=== PATIENT | female | born 1965 | race Caucasian/White ===

== ENCOUNTER → 2019-04-28 | Outpatient (CLI) | payer BC ==
[2019-04-28 13:25] LABS: HEMATOCRIT 39.3 % (36.0-47.0); HEMOGLOBIN 13.6 g/dL (12.0-15.5); MEAN CORPUSCULAR HEMOGLOBIN 33.2 pg (27.0-33.4); MEAN CORPUSCULAR HGB CONC 34.7 g/dL (32.0-36.0); MEAN CORPUSCULAR VOLUME 96 fl (80-97); PLATELET COUNT 260 10^3/uL (150-450); RED CELL DISTRIBUTION WIDTH 13.7 % (11.5-14.0); WHITE BLOOD COUNT 9.4 10^3/uL (4.0-10.5)
[2019-04-28 13:45] LABS: ALBUMIN 4.9 g/dL (3.5-5.0); ALKALINE PHOSPHATASE 86 U/L (38-126); ANION GAP 11 (5-19); ASPARTATE AMINO TRANSFERASE 29 U/L (14-36); BILIRUBIN,DIRECT 0.4 mg/dL (0.0-0.4); BILIRUBIN,TOTAL 0.9 mg/dL (0.2-1.3); BLOOD UREA NITROGEN 25 mg/dL (7-20); CALCIUM 10.5 mg/dL (8.4-10.2); CARBON DIOXIDE 24 mmol/L (22-30); CHLORIDE 105 mmol/L (98-107); CHOLESTEROL 270.84 mg/dL (0-200); GLUCOSE 106 mg/dL (75-110); POTASSIUM 4.3 mmol/L (3.6-5.0); TOTAL PROTEIN 8.1 g/dL (6.3-8.2); TRIGLYCERIDES 202 mg/dL (<150)
[2019-04-28 13:57] LABS: DIRECT LDL 146 mg/dL (<100)
[2019-04-28 13:58] LABS: VLDL CHOLESTEROL 40.4 mg/dL (10-31)
== END ==
LOC: LAB 13:06
PROVIDERS: ATTEND Physician Assistant
DX: Z00.00 Encounter for general adult medical examination without abnormal findings (principal); I10 Essential (primary) hypertension; Z13.1 Encounter for screening for diabetes mellitus; Z13.29 Encounter for screening for other suspected endocrine disorder; F17.200 Nicotine dependence, unspecified, uncomplicated
CPT/HCPCS: 36415; 80053; 80061; 83036; 84436; 84443; 85027

== ENCOUNTER 2019-11-13 07:02 | Emergency (ER) | payer BC ==
[2019-11-13] MEDS ORDERED: ASPIRIN 81 MG TABLET, CHEWABLE PO ONE (07:33)
[2019-11-13 08:07] LABS: ABSOLUTE EOSINOPHILS # (AUTO) 0.2 10^3/uL (0.0-0.6); ABSOLUTE LYMPHOCYTES (AUTO) 2.2 10^3/uL (0.5-4.7); BASOPHILS % (AUTO) 0.6 % (0-2); EOSINOPHILS % (AUTO) 2.5 % (0-6); TOTAL CELLS COUNTED % (AUTO) 100 %
[2019-11-13 08:12] LABS: ABSOLUTE BASOPHILS # (AUTO) 0.1 10^3/uL (0.0-0.2); ABSOLUTE MONOCYTES (AUTO) 0.8 10^3/uL (0.1-1.4); ABSOLUTE NEUT (AUTO) 5.5 10^3/uL (1.7-8.2); HEMATOCRIT 39.4 % (36.0-47.0); HEMOGLOBIN 14.1 g/dL (12.0-15.5); LYMPHOCYTES % (AUTO) 25.2 % (13-45); MEAN CORPUSCULAR HEMOGLOBIN 34.1 pg (27.0-33.4); MEAN CORPUSCULAR HGB CONC 35.8 g/dL (32.0-36.0); MEAN CORPUSCULAR VOLUME 95 fl (80-97); PLATELET COUNT 240 10^3/uL (150-450); RED BLOOD COUNT 4.13 10^6/uL (3.72-5.28); RED CELL DISTRIBUTION WIDTH 13.4 % (11.5-14.0); SEGMENTED NEUTROPHILS % (AUTO) 62.7 % (42-78); WHITE BLOOD COUNT 8.8 10^3/uL (4.0-10.5)
[2019-11-13 08:25] LABS: ALBUMIN 4.7 g/dL (3.5-5.0); ALKALINE PHOSPHATASE 90 U/L (38-126); ANION GAP 10 (5-19); ASPARTATE AMINO TRANSFERASE 28 U/L (14-36); BILIRUBIN,DIRECT 0.2 mg/dL (0.0-0.4); BILIRUBIN,TOTAL 0.9 mg/dL (0.2-1.3); BLOOD UREA NITROGEN 19 mg/dL (7-20); CALCIUM 9.7 mg/dL (8.4-10.2); CARBON DIOXIDE 27 mmol/L (22-30); CHLORIDE 102 mmol/L (98-107); CREATINE KINASE 71 U/L (30-135); GLUCOSE 110 mg/dL (75-110); POTASSIUM 3.8 mmol/L (3.6-5.0)
[2019-11-13 08:37] LABS: CREATINE KINASE MB 1.02 ng/mL (<4.55); TROPONIN I < 0.012 ng/mL
--- NOTE | 2019-11-13 08:46 | ER Document Report ---
ED Cardiac - General Chief Complaint: Chest Pain Stated Complaint: CHEST PAIN Time Seen by Provider: 11/13/19 08:24 Primary Care Provider: FRANKIE JUNIOR PA-C [Primary Care Provider] - Follow up as needed Notes: CHIEF COMPLAINT: Chest pain HPI: 53-year-old female who is reasonably healthy presenting for evaluation of sharp left chest pain that began last night has been constant since onset. Patient states pain seems to radiate into the left shoulder and down the left arm to the level of the elbow. Reports mild shortness of breath with this denies nausea vomiting. No history of similar discomfort. Patient states that she does have a hypertension history but does not take medication currently. Patient states that she normally does walk 6 to 8 miles daily on the weekends and does not have any exertional dyspnea or chest discomfort when she is doing that. Patient denies thyroid issues, states that she felt like her heartbeat was "quick" last night at onset of her symptoms. Patient states currently she feels better than previous. Denies abdominal pain. Denies prior cardiac work- up positive ROS: See HPI - all other systems were reviewed and are otherwise negative Constitutional: no fever Eyes: no drainage, no blurred vision ENT: no runny nose, no sore throat Cardiovascular: Positive chest pain Resp: Positive SOB, no cough GI: no vomiting, no diarrhea, no abdominal pain : no dysuria Integumentary: no rash Allergy: no hives Musculoskeletal: no extremity pain or swelling Neurological: no numbness/tingling, no weakness MEDICATIONS: I agree with the patient medications as charted by the RN. ALLERGIES: I agree with the allergies as charted by the RN. PAST MEDICAL HISTORY/PAST SURGICAL HISTORY: Reviewed and agree as charted by RN. SOCIAL HISTORY: Reviewed and agree as charted by RN. FAMILY HISTORY: No significant familial comorbid conditions directly related to patient complaint EXAM: Reviewed vital signs as charted by RN. CONSTITUTIONAL: Alert and oriented and responds appropriately to questions. Well-appearing; well-nourished HEAD: Normocephalic; atraumatic EYES: PERRL; Conjunctivae clear, sclerae non-icteric ENT: normal nose; no rhinorrhea; moist mucous membranes; pharynx without lesions noted, no uvula edema or deviation, no tonsillar hypertrophy, phonation normal NECK: Supple without meningismus; non-tender; no cervical lymphadenopathy, no masses CARD: RRR; no murmurs, no clicks, no rubs, no gallops; symmetric distal pulses RESP: Normal chest excursion without splinting or tachypnea; breath sounds clear and equal bilaterally; no wheezes, no rhonchi, no rales, pulse oximetry 97% on room air not hypoxic ABD/GI: Normal bowel sounds; non-distended; soft, non-tender, no rebound, no guarding; no palpable organomegaly or masses. BACK: The back appears normal and is non-tender to palpation, there is no CVA tenderness EXT: Normal ROM in all joints; non-tender to palpation; no cyanosis, no effusions, no edema SKIN: Normal color for age and race; warm; dry; good turgor; no acute lesions noted NEURO: Moves all extremities equally; Motor and sensory function intact PSYCH: The patient's mood and manner are appropriate. Grooming and personal hygiene are appropriate. MDM: 53-year-old female presenting with left-sided chest pain that began last night with mild shortness of breath and a sensation of her heart beating quickly. We will add thyroid panel to lab work. Initial screening troponin was negative. Initial EKG sinus tachycardia without other visible ectopy. Patient heart score is 3 for hypertension history, age and EKG. TRAVEL OUTSIDE OF THE [place] IN LAST 30 DAYS: No - Related Data Allergies/Adverse Reactions: Iodinated Contrast Media Allergy (Verified 11/13/19 07:40) Penicillins Allergy (Verified 11/13/19 07:40) Past Medical History - Social History Smoking Status: Unknown if Ever Smoked Family History: Reviewed & Not Pertinent Patient has suicidal ideation: No Patient has homicidal ideation: No Physical Exam - Vital signs Vitals: Resp Pulse Ox 24 H 97 11/13/19 07:19 11/13/19 07:19 Course - Re-evaluation Re-evalutation: 11/13/19 09:57 I left a message through the carton making machine operator for Dr. Renaldo nuñez to discuss outpatient follow-up for the patient. Initial troponin was negative. Patient is feeling better. She is low risk for ACS. Will obtain second troponin. 11/13/19 10:[address] Renaldo nuñez, case was discussed labs reviewed, in agreement for outpatient follow-up patient to call the office 11/13/19 12:23 Second troponin is normal. Patient is pain-free at this time. She is comfortable with the plan for discharge to follow-up outpatient with cardiology - Vital Signs Vital signs: Temp Pulse Resp BP Pulse Ox 98.4 F 16 148/73 H 98 11/13/19 08:11 11/13/19 11:01 11/13/19 11:01 11/13/19 11:01 - Laboratory Result Diagrams: 11/13/19 07:40 11/13/19 07:40 Laboratory results interpreted by me: 11/13/19 07:40 MCH 34.1 H Discharge - Discharge Clinical Impression: Chest pain Qualifiers: Chest pain type: unspecified Qualified Code(s): R07.9 - Chest pain, unspecified Condition: Stable Disposition: HOME, SELF-CARE Additional Instructions: Take a baby aspirin daily. Call the cardiology office today to schedule close follow-up in the office for outpatient stress test. We did speak with card iology about your case today. If you have recurrent or worsening symptoms return for reevaluation Referrals: FRANKIE JUNIOR PA-C [Primary Care Provider] - Follow up as needed ZANE FRANCO MD [ACTIVE STAFF] - Follow up as needed
--- NOTE | 2019-11-13 09:18 | RADIOLOGY REPORT (SQ) ---
EXAM DESCRIPTION: CHEST 2 VIEWS COMPLETED DATE/TIME: 11/13/2019 8:55 am REASON FOR STUDY: chest pain COMPARISON: None. EXAM PARAMETERS: NUMBER OF VIEWS: two views TECHNIQUE: Digital Frontal and Lateral radiographic views of the chest acquired. RADIATION DOSE: NA LIMITATIONS: none FINDINGS: LUNGS AND PLEURA: No opacities, masses or pneumothorax. No pleural effusion. MEDIASTINUM AND HILAR STRUCTURES: No masses or contour abnormalities. HEART AND VASCULAR STRUCTURES: Heart normal size. No evidence for failure. BONES: No acute findings. HARDWARE: None in the chest. Cholecystectomy clips. OTHER: No other significant finding. IMPRESSION: NO ACUTE RADIOGRAPHIC FINDING IN THE CHEST. TECHNICAL DOCUMENTATION: JOB ID: [id number] 2010 [employer]- All Rights Reserved Reading location - IP/workstation name: [email or web address]
[2019-11-13] MEDS ORDERED: HYDROCHLOROTHIAZIDE 25 MG TABLET PO ONE (10:05)
[2019-11-13 12:37] VITALS: BP 154/69
--- NOTE | 2019-11-13 18:15 | EKG REPORT ---
SEVERITY:- ABNORMAL ECG - SINUS TACHYCARDIA RIGHT ATRIAL ABNORMALITY : Confirmed by: Colleen Kenney 13-Nov-2019 18:14:30
== END 2019-11-13 12:35 | disposition home or self-care (01) ==
LOC: ER 07:02
DX: R07.9 Chest pain, unspecified (principal); M25.512 Pain in left shoulder; M79.602 Pain in left arm; M25.522 Pain in left elbow; R06.02 Shortness of breath; R00.0 Tachycardia, unspecified; I10 Essential (primary) hypertension
CPT/HCPCS: 36415; 71046; 80053; 82550; 82553; 84443; 84484; 85025; 93005; 93010; 99285

== ENCOUNTER → 2020-02-26 | Outpatient (CLI) | payer BC | LOC: RDC 14:50 | PROVIDERS: ATTEND Nurse Practitioner Family | DX: Z03.818 Encounter for observation for suspected exposure to other biological agents ruled out (principal) | CPT/HCPCS: 87635; C9803 ==

== ENCOUNTER → 2020-04-22 | Outpatient (CLI) | payer BC ==
[2020-04-22 11:01] LABS: CHOLESTEROL 279.42 mg/dL (0-200); TRIGLYCERIDES 221 mg/dL (<150)
[2020-04-22 11:11] LABS: DIRECT LDL 119 mg/dL (<100); VLDL CHOLESTEROL 44.2 mg/dL (10-31)
== END ==
LOC: OD 09:40
PROVIDERS: ATTEND Physician Assistant
DX: Z13.29 Encounter for screening for other suspected endocrine disorder (principal); E78.5 Hyperlipidemia, unspecified
CPT/HCPCS: 36415; 80061; 84436; 84443

== ENCOUNTER → 2020-04-26 | Outpatient (CLI) | payer BC ==
[2020-04-26 09:32] LABS: ABSOLUTE BASOPHILS # (AUTO) 0.1 10^3/uL (0.0-0.2); ABSOLUTE EOSINOPHILS # (AUTO) 0.3 10^3/uL (0.0-0.6); ABSOLUTE LYMPHOCYTES (AUTO) 2.5 10^3/uL (0.5-4.7); ABSOLUTE MONOCYTES (AUTO) 0.7 10^3/uL (0.1-1.4); EOSINOPHILS % (AUTO) 4.2 % (0-6); HEMATOCRIT 42.5 % (36.0-47.0); HEMOGLOBIN 14.6 g/dL (12.0-15.5); MEAN CORPUSCULAR HEMOGLOBIN 33.7 pg (27.0-33.4); MEAN CORPUSCULAR HGB CONC 34.4 g/dL (32.0-36.0); MEAN CORPUSCULAR VOLUME 98 fl (80-97); MONOCYTES % (AUTO) 10.3 % (3-13); PLATELET COUNT 254 10^3/uL (150-450); RED BLOOD COUNT 4.34 10^6/uL (3.72-5.28); RED CELL DISTRIBUTION WIDTH 13.3 % (11.5-14.0); SEGMENTED NEUTROPHILS % (AUTO) 46.5 % (42-78); TOTAL CELLS COUNTED % (AUTO) 100 %; WHITE BLOOD COUNT 6.5 10^3/uL (4.0-10.5)
[2020-04-26 10:00] LABS: ALBUMIN 5.2 g/dL (3.5-5.0); ALKALINE PHOSPHATASE 85 U/L (38-126); ANION GAP 13 (5-19); ASPARTATE AMINO TRANSFERASE 35 U/L (14-36); BILIRUBIN,DIRECT 0.5 mg/dL (0.0-0.4); BILIRUBIN,TOTAL 0.7 mg/dL (0.2-1.3); BLOOD UREA NITROGEN 17 mg/dL (7-20); CALCIUM 10.1 mg/dL (8.4-10.2); CARBON DIOXIDE 26 mmol/L (22-30); CHLORIDE 105 mmol/L (98-107); GLUCOSE 93 mg/dL (75-110); POTASSIUM 4.4 mmol/L (3.6-5.0); TOTAL PROTEIN 8.4 g/dL (6.3-8.2)
--- NOTE | 2020-04-26 12:17 | RADIOLOGY REPORT (SQ) ---
EXAM DESCRIPTION: U/S THYROID/SFT TISS HD NECK IMAGES COMPLETED DATE/TIME: 04/26/2020 9:44 am REASON FOR STUDY: HX THYROID NODULE/PERSONAL HISTORY OF ENDO, NUTRITIONAL AND METABO (Z86.39) R53.83 OTHER FATIGUE Z86.39 PERSONAL HISTORY OF ENDO, NUTRITIONAL AND METABOLIC D COMPARISON: None. TECHNIQUE: Dynamic and static acevedo-scale images acquired of the thyroid gland. Selected additional c olor/power Doppler images recorded. All images stored to PACS. LIMITATIONS: None. FINDINGS: RIGHT LOBE: Normal size. Homogeneous echotexture. No cystic or solid masses. LEFT LOBE: Normal size. Homogeneous echotexture. Circumscribed nodule measuring 1.6 cm. Predominat key solid slightly hypoechoic echotexture with a few small cystic areas. Oriented wider than tall. ISTHMUS: Normal size. Homogeneous echotexture. No cystic or solid masses. OTHER: No other significant finding. IMPRESSION: 1.6 CM NODULE IN THE LEFT LOBE OF THE THYROID. MODERATELY SUSPICIOUS, TIRADS 4. COMMENT: The [employer] ([employer]) Thyroid Imaging Reporting And Data System (TI-RADS ) is an ultrasound feature based summed scoring system of risk categorization and management recommen dations for thyroid nodules. TI-RADS assessment categories are as follows: 0 - Incomplete exam: Additional imaging or comparison to prior examinations recommended. 1. - Benign: Fine-needle aspiration or follow-up not routinely recommended in the absence of clinical change. 2. - Not suspicious: Fine-needle aspiration or follow-up not routinely recommended in the absence of clinical change. 3. - Mildly suspicious: Fine-needle aspiration recommended if greater than or equal to 2.5 cm in size . Ultrasound follow-up recommended if greater than or equal to 1.5 cm in size. Follow-up at 1, 3, and 5 years. 4. - Moderately suspicious: Fine-needle aspiration recommended if greater than or equal to 1.5 cm in size. Ultrasound follow-up recommended if greater than or equal to 1.0 cm in size. Follow-up at 1, 2, 3, and 5 years. 5. - Highly suspicious: Fine-needle aspiration recommended if greater than or equal to 1.0 cm in size . Ultrasound follow-up recommended if greater than or equal to 0.5 cm in size. Follow-up at 1, 2, 3, and 5 years. TECHNICAL DOCUMENTATION: JOB ID: [id number] 2010 [employer]- All Rights Reserved Reading location - IP/workstation name: [email or web address]
== END ==
LOC: OD 08:47
PROVIDERS: ATTEND Physician Assistant
DX: R53.83 Other fatigue (principal); E04.1 Nontoxic single thyroid nodule; E55.9 Vitamin D deficiency, unspecified; E53.9 Vitamin B deficiency, unspecified; R94.5 Abnormal results of liver function studies; R79.0 Abnormal level of blood mineral; R79.9 Abnormal finding of blood chemistry, unspecified; Z79.84 Long term (current) use of oral hypoglycemic drugs; Z86.39 Personal history of other endocrine, nutritional and metabolic disease
CPT/HCPCS: 36415; 76536; 80053; 82306; 82607; 83735; 85025

== ENCOUNTER → 2020-05-11 | Day surgery (SDC) | payer BC ==
--- NOTE | 2020-05-11 15:01 | RADIOLOGY REPORT (SQ) ---
EXAM DESCRIPTION: U/S BX SOFT TISS NECK THORX IMAGES COMPLETED DATE/TIME: 05/11/2020 1:56 pm REASON FOR STUDY: E04.1 NONTOXIC SINGLE THYROID NODULE COMPARISON: Ultrasound of the thyroid from 04/26/2020. TECHNIQUE: The procedure, risks, benefits, and alternatives were discussed with the patient in the p reprocedural area, and all questions were answered. Informed consent was obtained verbally and in wri ting. The patient was then brought to the procedural suite, positioned supine on a gurney, and a time-out w as performed. Selected grayscale and color Doppler images of the nodule in the left lobe of the thyr oid gland were then obtained ; based review of these images an appropriate percutaneous access site w as selected. The area around the selected access site was subsequently prepped and draped with 2% chl orhexidine utilizing standard sterile technique. Then, after the access site was anesthetized with 1% lidocaine, a 25 gauge needle was advanced into the lesion of interest utilizing sonographic guidance ; after each pass the sample was submitted to cytopathology for review and in total 5 passes were pe rformed. The patient tolerated the procedure well with local anesthesia. At the end of the procedure the patient's condition was unchanged from the preprocedural baseline. Documentation of pawv-eg-ojam time the proceduralist spent monitoring the patient: 25 minutes. LIMITATIONS: None. FINDINGS: Integrated into the Technique. IMPRESSION: Successful ultrasound-guided fine-needle aspiration of the nodule in the left lobe of th e thyroid gland. TECHNICAL DOCUMENTATION: JOB ID: [id number] Reading location - IP/workstation name: [email or web address]
== END ==
LOC: RAD 12:37
PROVIDERS: ATTEND Otolaryngology
DX: E04.1 Nontoxic single thyroid nodule (principal)
CPT/HCPCS: 21550; 88173

== ENCOUNTER → 2020-05-18 | Day surgery (SDC) | payer BC ==
--- NOTE | 2020-05-18 14:15 | RADIOLOGY REPORT (SQ) ---
EXAM DESCRIPTION: U/S BX SOFT TISS NECK THORX IMAGES COMPLETED DATE/TIME: 05/18/2020 2:03 pm REASON FOR STUDY: E04.1 NONTOXIC SINGLE THYROID NODULE E04.1 NONTOXIC SINGLE THYROID NODULE COMPARISON: 05/11/2020 TECHNIQUE: The procedure was discussed with the patient and written informed consent obtained. A ti meout was performed to confirm the procedure and patient's identity. The skin of the neck was preppe d and draped in sterile fashion and 8 mL of 1% lidocaine administered for local anesthesia. Under sonographic guidance, fine needle aspiration biopsy was per formed of the mass in the left lobe of the thyroid. Two separate aspirations were performed. Hemostasis was obtained with direct manual compression. Th ere were no immediate complications. LIMITATIONS: None. FINDINGS: PATHOLOGY: Pending. IMPRESSION: ULTRASOUND-GUIDED BIOPSY PERFORMED OF A MASS IN THE LEFT LOBE OF THE THYROID. PATHOLOGY PENDING AT THE TIME OF DICTATION. COMMENT: Patient medication list reviewed: Yes- Quality ID# [id number]:Eligible professional attests to doc umenting in the medical record they obtained, updated, or reviewed the patient's current medications. TECHNICAL DOCUMENTATION: JOB ID: [id number] 2010 [employer]- All Rights Reserved Reading location - IP/workstation name: [email or web address]
== END ==
LOC: RAD 13:15 → EDSTATUS 13:16
PROVIDERS: ATTEND Otolaryngology
DX: E04.1 Nontoxic single thyroid nodule (principal); I10 Essential (primary) hypertension; Z87.891 Personal history of nicotine dependence; Z88.0 Allergy status to penicillin; R68.89 Other general symptoms and signs
CPT/HCPCS: 21550; 88173

== ENCOUNTER 2020-06-08 05:33 | Day surgery (SDC) | payer BC ==
--- NOTE | 2020-06-03 12:55 | EKG REPORT ---
SEVERITY:- NORMAL ECG - SINUS RHYTHM : Confirmed by: Esau Neumann MD 03-Jun-2020 12:54:05
[~2020-06-08 05:33] MED LIST: CLINDAMYCIN 900 MG/D5W RTU 900 MG/50 ML RTUPB IV ONE; CLINDAMYCIN 900 MG/D5W RTU 900 MG/50 ML RTUPB IV PRN; LACTATED RINGERS 1000 ML IV PRN; LIDOCAINE 0.5% INJ-PF (5 MG/ML) 50 ML SDV SUBCUT PRN
[2020-06-08] MEDS ORDERED: FENTANYL CITRATE INJ/PF 250 MCG/5 ML AMPULE ONE (06:31)
[2020-06-08] MEDS ORDERED: EPHEDRINE SULFATE INJ 50 MG/1 ML AMPULE ONE (06:31)
[2020-06-08] MEDS ORDERED: ONDANSETRON HCL INJ/PF 4 MG/2 ML SDV ONE ×2 (06:31→10:02)
[2020-06-08] MEDS ORDERED: KETAMINE HCL INJ 500 MG/10 ML VIAL ONE (06:31)
[2020-06-08] MEDS ORDERED: DEXAMETHASONE SOD PHOSPHATE INJ 4 MG/1 ML VIAL ONE (06:31)
[2020-06-08] MEDS ORDERED: MIDAZOLAM 2 MG/2 ML INJ ONE (06:31)
[2020-06-08] MEDS ORDERED: PROPOFOL INJ 200 MG/20 ML VIAL IV ONE (06:32)
[2020-06-08] MEDS ORDERED: BUPIVACAINE HCL 0.5%/EPI 1:200000 INJ 1.8 ML CARTRIDGE ONE (07:22)
[2020-06-08] MEDS ORDERED: OXYMETAZOLINE HCL 0.05% NASAL SPRAY 15 ML BOTTLE ONE (07:22)
[2020-06-08] MEDS ORDERED: MEPERIDINE HCL/PF INJ 25 MG/1 ML DISP.SYRIN IV PRN (08:13)
[2020-06-08] MEDS ORDERED: FENTANYL CITRATE INJ/PF 100 MCG/2 ML AMPUL IV PRN ×3 (08:13)
[2020-06-08] MEDS ORDERED: DIPHENHYDRAMINE HCL 50 MG/ML VIAL IV PRN (08:13)
[2020-06-08] MEDS ORDERED: PROMETHAZINE HCL INJ 25 MG/1 ML VIAL IV PRN ×2 (08:13)
[2020-06-08] MEDS ORDERED: ONDANSETRON HCL INJ/PF 4 MG/2 ML SDV IV PRN ×2 (08:13→09:49)
[2020-06-08] MEDS: FENTANYL CITRATE INJ/PF 100 MCG/2 ML AMPUL ONE ×2 (09:40→09:50)
[2020-06-08] MEDS ORDERED: HYDROCODONE/ACETAMINOPHEN 5-325 MG TABLET PO PRN (09:49)
[2020-06-08] MEDS ORDERED: HYDROCODONE/ACETAMINOPHEN 5-325 MG TABLET ONE (10:33)
[2020-06-08] MEDS ORDERED: METOCLOPRAMIDE HCL INJ/PF 10 MG/2 ML SDV ONE (10:36)
[2020-06-08] MEDS ORDERED: METOCLOPRAMIDE HCL INJ/PF 10 MG/2 ML SDV IV ONE (10:45)
[2020-06-08 11:51] VITALS: BP 141/79
[2020-06-08] MEDS ORDERED: SUCCINYLCHOLINE CHLORIDE INJ 200 MG/10 ML VIAL ONE (14:12)
--- NOTE | 2020-06-12 07:43 | Operative Report ---
Operative Report-[facility] Operative Report: Date of procedure: June 08, 2020 Preoperative diagnoses: 1. Left thyroid lobe dominant nodule 2. Chronic cough 3. Chronic neck compressive symptoms Postoperative diagnoses: 1. Left thyroid lobe dominant nodule 2. Chronic cough 3. Chronic neck compressive symptoms Operation performed: 1. Left thyroid lobectomy with partial isthmectomy (CPT CODE 93273) 2. Intraoperative nerve monitoring (NIM) Primary Surgeon of Record: Dr. Chaka Carnes Assisting surgeon: Dr. Chester Cavazos Anesthetic: General endotracheal tube anesthesia Anesthesia provider: VALARIE Gardner Estimated blood loss: 10 mL Fluids: 1000 mL Complications: None Drains: None Sponge Count: Verified Needle Count: Verified Materials forwarded as specimen: 1. Left thyroid lobe with partial isthmus Findings: 1. Left thyroid lobe with dominant nodule and no other surrounding concerning lymphadenopathy. 2. Left recurrent laryngeal nerve was identified and preserved and was with adequate stimulation at 1 mA during and at the end of the case. 3. Left parathyroid gland prospects were identified and preserved. Indications: This is a 54-year-old white female patient who has been seen and evaluated [facility]. She had been referred to ENT for a left thyroid lobe nodule and chronic cough which has progressively gotten worse over the months. The patient underwent thyroid ultrasound with ultrasound-guided FNAB with a benign left thyroid nodule noted in the setting of chronic compressive symptoms with chronic cough. There was an extensive discussion held with the patient with plan made to proceed with thyroid surgery. The patient voiced an understanding of her medical findings to include relating to her thyroid disorder and desired proceed with a left thyroid lobectomy with partial isthmusectomy surgery. She voiced an understanding of the procedure/surgery and all of the risks and complications, and consent was obtained. Procedure: The patient was taken to the main operating room and placed on the operating room table in the supine position. Appropriate monitors were placed. Using mask and IV access, general anesthesia was induced. The [facility] recurrent laryngeal nerve monitoring system was set up and tested appropriately before beginning the case. The patient was next transorally intubated without difficulty. The patient was then positioned for thyroid surgery. The patient's anterior neck had a planned incision site marked with a surgical marking pen followed by infiltra tion with local anesthetic with epinephrine. The patient was then prepped and draped in a sterile fashion for thyroid surgery. Next, an incision was made down through the level of the subcutaneous tissues and platysma. Using blunt and sharp dissection as well as Bovie and bipolar electrocautery skin/soft tissue flaps were elevated in a sub-platysmal fashion without difficulty. The strap muscles were next identified and the midline was divided allowing the strap muscles to be mobilized and reflected laterally. At this point the left sided strap muscles were reflected laterally and dissection proceeded utilizing blunt and sharp dissection. The superior and inferior poles of the thyroid lobe were clearly identified. The vasculature in these areas was clearly identified and divided using bipolar electrocautery and/or the Harmonic hand-piece. During this process of mobilizing the left thyroid lobe there were parathyroid gland prospects that were identified and preserved. Next the left recurrent laryngeal nerve was clearly identified and preserved. At this point the thyroid lobe was released from the area of Kurtz's ligament and mobilized onto the anterior tracheal wall and was divided in the mid portion of the isthmus to complete the partial isthmectomy. The specimen was then removed and passed off for permanent pathology evaluation. The left recurrent laryngeal nerve was stimulated at a setting of 1 milliamp without difficulty. Next, the neck was thoroughly irrigated and suctioned. Additional hemostasis was provided with bipolar electrocautery. Findings were also as noted above. Adequate hemostasis was noted and the strap muscles were re-approximated in the midline with 5-0 Vicryl suture. The platysma was also re-approximated with 5-0 Vicryl suture. 5-0 Monocryl suture was next utilized for re-approximation of the deep dermal tissue layer and for re-approximation of the skin margins via a continuous dermal suture. Next, the skin was cleaned and dried followed by placement of Mastisol, Steri- Strips, and a fluffs pressure dressing. The patient was then returned to the anesthesia staff and was allowed to emerge from general anesthesia. The patient was extubated in the main operating room and was then transported to the post- anesthesia recovery unit in stable condition. There were no complications.
== END 2020-06-08 11:45 | disposition home or self-care (01) ==
LOC: OROUT 05:33
PROVIDERS: ATTEND Otolaryngology
DX: E04.1 Nontoxic single thyroid nodule (principal); R05 Cough; Z03.818 Encounter for observation for suspected exposure to other biological agents ruled out; I10 Essential (primary) hypertension; Z88.0 Allergy status to penicillin; Z88.2 Allergy status to sulfonamides; Z79.899 Other long term (current) drug therapy; Z91.041 Radiographic dye allergy status
CPT/HCPCS: 93005; 88307 ×2; 93010; 00320; 60220; U0003; J2250; J3490 ×4; J1100; J3010 ×2; J2765; J0330; J2405; J2704; C9803; 320; 87635